=== PATIENT | male | born 1935 | race Caucasian/White ===

== ENCOUNTER 2022-08-24 02:04 | Emergency (ER) | payer MEDICARE, OTHER ==
[~2022-08-24] VITALS: Ht 177.8 cm; Wt 87.1 kg
--- NOTE | 2022-08-24 02:55 | NUR ---
MARYLU 838 FROM HOME FOR C/O RECTAL BLEEDING. REPORTED HX OF HEMORRHOIDS. PATIENT IS AAOX4. AMBULATORY, ABLE TO MAKE NEEDS KNOWN. PLACED COMFORTABLY IN BED. ATTACHED TO MONITOR. VITALS CHECKED.
[2022-08-24] MEDS ORDERED: IV NS 0.9% 1,000 ML BAG IV ONE (03:30)
--- NOTE | 2022-08-24 03:30 | NUR ---
IV TAL G18 INSERTED ON RIGHT AC. BLOOD DRAWN AND SENT TO LAB
--- NOTE | 2022-08-24 03:30 | NUR ---
PT CHANGED INTO [facility].
--- NOTE | 2022-08-24 04:27 | NUR ---
DR KIRTI DU AT PT'S BEDSIDE FOR RECTAL EXAM WITH MALE RN RN BIRTHING
[2022-08-24 04:38] LABS: BASOPHILS % (AUTO) 0.3 % (0.0-2.0); EOSINOPHILS % (AUTO) 1.7 % (0.0-6.0); HEMATOCRIT 43 % (39-51); HEMOGLOBIN 14.2 g/dL (13.5-17.5); LYMPHOCYTES # (AUTO) 1.3 K/uL (0.8-4.8); LYMPHOCYTES % (AUTO) 12.7 % (20.0-44.0); MEAN CORPUSCULAR HGB CONC 33 g/dl (31.0-36.0); MEAN CORPUSCULAR VOLUME 98 fL (80-96); MONOCYTES # (AUTO) 0.8 K/uL (0.1-1.30); MONOCYTES % (AUTO) 7.4 % (2.0-12.0); NEUTROPHILS # (AUTO) 8.1 K/uL (1.8-8.9); NEUTROPHILS % (AUTO) 77.9 % (43.0-81.0); PLATELET COUNT (AUTO) 183 K/uL (150-450); RED BLOOD CELL COUNT(AUTO) 4.37 MIL/uL (4.5-6.0); WHITE BLOOD COUNT (AUTO) 10.4 K/uL (4.3-11.0)
[2022-08-24 04:51] LABS: CREATININE 1.2 mg/dL (0.6-1.3); POTASSIUM 4.2 mmol/L (3.5-5.1)
[2022-08-24 04:57] LABS: ALBUMIN 3.4 g/dL (3.4-5.0); BILIRUBIN,DIRECT 0.2 mg/dL (0.0-0.2); BILIRUBIN,TOTAL 0.4 mg/dL (0.2-1.0); TOTAL PROTEIN, SERUM 6.5 g/dL (6.4-8.2)
--- NOTE | 2022-08-24 05:40 | NUR ---
IV removed. Catheter intact and site benign. Pressure and 4x4 applied to site. No bleeding noted.Patient discharged to home in stable condition. Written and verbal after care instructions given. Patient verbalizes understanding of instruction.
--- NOTE | 2022-08-24 05:47 | NUR ---
Patient discharged to home in stable condition. Written and verbal after care instructions given. Patient verbalizes understanding of instruction.
[2022-08-24 05:48] VITALS: BP 152/84
== END 2022-08-24 05:49 | disposition home or self-care (01) ==
LOC: ER 02:06
DX: K64.8 Other hemorrhoids (principal); I48.91 Unspecified atrial fibrillation; Z88.0 Allergy status to penicillin
CPT/HCPCS: 99283; 96360; 85025; 80048; 83605; 80076; 36415; 85730; J7030